=== PATIENT | female | born 1935 | race Caucasian/White ===

== ENCOUNTER → 2016-08-26 | Outpatient (CLI) | payer MEDICARE, BC ==
[~2016-08-26] MED LIST: ACET325T PO; ACIP20TA6 PO; ALPR.5 PO; ASPI81CH CHEW; ATOR10TA15 PO; CALC8.5C CHEW; CITA20TA4 PO; FLUT50SP EACH NARE; MELO-1 PO; MIRA3350; MIRA33504 PO; MULT1TAB84 PO; MYLASUS2 PO; PROBCAP11 PO; SUCR1TAB PO; TRAM50TA PO; ZOLP5TAB3 PO
[2016-08-26 12:12] LABS: AUTOMATED NEUTROPHIL # 2.7 TH/MM3 (1.8-7.7); BASOPHIL % 0.7 % (0.0-2.0); EOSINOPHIL # 0.1 TH/MM3 (0-0.4); EOSINOPHIL % 3.1 % (0.0-4.0); HEMATOCRIT 36.9 % (35.0-46.0); HEMO FLAGS DIFF FINAL; LYMPH % 26.6 % (9.0-44.0); LYMPHOCYTE # 1.2 TH/MM3 (1.0-4.8); MEAN CELL VOLUME 98.1 FL (80.0-100.0); MEAN CORPUSCULAR HEMOGLOBIN 33.3 PG (27.0-34.0); MEAN CORPUSCULAR HGB CONC 33.9 % (32.0-36.0); MONO % 11.1 % (0.0-8.0); NEUT % 58.5 % (16.0-70.0); PLATELET COUNT 181 TH/MM3 (150-450); RED BLOOD COUNT 3.77 MIL/MM3 (4.00-5.30); RED CELL DISTRIBUTION WIDTH 14.4 % (11.6-17.2); WHITE BLOOD COUNT 4.7 TH/MM3 (4.0-11.0)
[2016-08-26 12:40] LABS: BICARBONATE 31.3 MEQ/L (21.0-32.0); POTASSIUM 3.8 MEQ/L (3.5-5.1)
--- NOTE | 2016-08-27 11:01 | EKG ---
Date Performed: 08/26/2016 Time Performed: 11:26:00 PTAGE: 81 years EKG: SINUS BRADYCARDIA BORDERLINE ECG PREVIOUS TRACING : 11/22/2013 09.34 Compared to prior tracing no significant change DOCTOR: Jessa Dixon Interpretating Date/Time 08/27/2016 11:00:00
== END ==
LOC: CPRE 11:04
PROVIDERS: ATTEND Orthopaedic Surgery Orthopaedic Surgery of the Spine
DX: Z01.810 Encounter for preprocedural cardiovascular examination (principal); Z01.812 Encounter for preprocedural laboratory examination; M48.06 Spinal stenosis, lumbar region; R94.31 Abnormal electrocardiogram [ECG] [EKG]
CPT/HCPCS: 36415; 80048; 85025; 93005

== ENCOUNTER → 2016-09-04 | Day surgery (SDC) | payer MEDICARE, BC ==
[~2016-09-04] VITALS: Ht 157.5 cm; Wt 75.4 kg
[~2016-09-04] MED LIST changes: +*RESP: ALBUTEROL 2.5 MG/3 ML NEB (PRN) PERIprocedural Use ONLY NEB ONE; +*morphine SULFATE 8 MG/ML PERIprocedure ONLY ONE; +ACETAMINOPHEN 1000 MG/100 ML VIAL IV ONE; +ACETAMINOPHEN/HYDROcodone 325 MG/5 MG TAB PO PRN; +BUPIVACAINE/EPINEPHRINE 0.25% PF 30 ML VIAL ONE; +CHLORHEXIDINE GLUCONATE 2 % 1 PACK (2 CLOTHS) TOPICAL PRN; +CHLORHEXIDINE GLUCONATE 4% SOLN 120 ML BTL TOPICAL SCH; +DO NOT ADM ANY ANTICOAGULANT DRUGS PRN; +FAMOTIDINE 20 MG/2 ML VIAL ONE; +GENTAMICIN SULFATE 80 MG/2 ML VIAL ONE; +INSULIN HUMAN REGULAR 1,000 UNITS/10 ML VIAL SQ PRN; +LACTATED RINGER'S 1000 ML IV PRN; +METOPROLOL TARTRATE 25 MG TAB PO PRN; +MIDAZOLAM HCL 2 MG/2 ML VIAL ONE; -MIRA3350; +NEOSTIGMINE 3 MG/3 ML SYR IV ONE; +ONDANSETRON HCL 4 MG/2 ML VIAL IV PUSH ONE; +POVIDONE IODINE 5% (ANTISEPSIS KIT) 4 APPLICATIONS EACH NARE PRN; +PROPOFOL 200 MG/20 ML AMP IV ONE; +SODIUM CHLORID 0.9% 500 ML IV PRN; +ceFAZolin 2 GM PREMIX 50 ML IV SCH; +ceFAZolin 2 GM PREMIX 50 ML ONE; +ceFAZolin INJ 1,000 MG VIAL IV ONE; +ePHEDrine/NS 25 MG/5 ML SYR IV ONE; +fentaNYL CITRATE 250 MCG/5 ML AMP ONE
[2016-09-04 07:50] VITALS: BP 151/72; PULSE 59; RESP 18; TEMP 98.3; O2SAT 96
--- NOTE | 2016-09-04 13:00 | MP ---
cc: RICO ROMAN M.D., MANDEEP MD SICKINGER, BARTON G. DO ZAHEDI, MINA M.D. DATE OF SURGERY September 04, 2016 PREOPERATIVE DIAGNOSES 1. L4-5 moderately severe spinal stenosis. 2. L4-5 grade 1 spondylolisthesis. 3. Right greater than left lumbar radiculitis with right lower extremity weakness. 4. Lumbar spine degenerative osteoarthritis. POSTOPERATIVE DIAGNOSES 1. L4-5 moderately severe spinal stenosis. 2. L4-5 grade 1 spondylolisthesis. 3. Right greater than left lumbar radiculitis with right lower extremity weakness. 4. Lumbar spine degenerative osteoarthritis. PROCEDURE L4-5 bilateral decompressive hemilaminectomy, foraminotomy, partial facetectomy with decompression of nerve roots. SURGEON Fortino Roman MD REFUGE MANAGER Karine Johns PA-C SPECIMENS Calcified ligamentum flavum. ESTIMATED BLOOD LOSS 25 cc. COMPLICATIONS None. ANESTHESIA General. DRAIN None. CONDITION Stable. PLAN OF ACTIVITY As per orders. PROCEDURE The patient was brought into the operating room and had satisfactory general endotracheal anesthesia by the Department of Anesthesia. The patient was carefully transferred onto the [facility] spinal frame. All pressure points were well padded. The lumbosacral spine was prepped and draped in the usual sterile manner. A localizing x-ray was used to identify the L4-5 interspace. 1% lidocaine with epinephrine was used to anesthetize the operative site. A small incision was made over L4-5. Dissection continued down through the tips of the posterior spinous processes. The paraspinal musculature were gently removed from the posterior elements. The patient was found to have what appeared to be extensive calcification or even crystalline type of calcification of the ligamentum flavum at the L4-5 interspace. The ligamentum flavum was removed and sent to Pathology for final histological diagnosis. A bilateral decompressive hemilaminectomy was performed at L4-5, bilateral foraminotomy and partial facetectomy. The patient was found to have significant more foraminal stenosis on the right side as compared to the left. Inspection of this patient showed no evidence of a herniated nucleus pulposus with very satisfactory decompression of the neurological elements. The wound was irrigated with copious amounts of sterile saline. The wound itself was dry. There was no evidence of cerebrospinal fluid leak or bleeding. The wound was closed in multiple layers, the fascia closed with #2 Ticron suture, the subcutaneous layer with 2-0 Vicryl suture and the skin approximated with running subcuticular 2-0 nylon. Sterile dressings were applied. The patient tolerated the procedure well and arrived in the recovery room in stable and satisfactory condition. MD ALLAN Galvez/JUDIT /11:50 AM /12:43 PM
[2016-09-04 14:30] VITALS: BP 128/56; PULSE 65; RESP 16; TEMP 98.6; O2SAT 96
--- NOTE | 2016-09-04 14:32 | RADRPT ---
EXAM DATE/TIME: 09/04/2016 10:42 [place] COMPARISON: No previous studies available for comparison. INDICATIONS : Herniated disk. MEDICAL HISTORY : None. SURGICAL HISTORY : None. ENCOUNTER: Initial ACUITY: 1 day PAIN SCORE: Non-responsive. LOCATION: Lumbar spine FINDINGS: A single magnified C-arm spot view is a lateral projection of the lumbosacral junction. Dorsal skin r etractors are noted. 2 metallic probes are seen projecting towards the posterior elements of L4 and L 5. There is a grade 1 anterolisthesis of L4 on L5 with minimal anterolisthesis of L5 on S1. CONCLUSION: Limited image as detailed above. Kamran Boston Jr., MD on September 04, 2016 at 14:29 Board Certified Radiologist. This report was verified electronically.
== END | disposition home or self-care (01) ==
LOC: HSDC 07:41
PROVIDERS: ATTEND Orthopaedic Surgery Orthopaedic Surgery of the Spine
DX: M48.06 Spinal stenosis, lumbar region (principal); M43.16 Spondylolisthesis, lumbar region; M47.26 Other spondylosis with radiculopathy, lumbar region; M54.16 Radiculopathy, lumbar region; R53.1 Weakness; M71.559 Other bursitis, not elsewhere classified, unspecified hip; Z96.641 Presence of right artificial hip joint; Z01.818 Encounter for other preprocedural examination
CPT/HCPCS: 00630; 63030; 72020; 76000; 88305; 94150; J0690; J1580; J2250; J2270; J2405; J2710; J3010; J7120; J7613; 94664; J0131